=== PATIENT | male | born 1965 | race Caucasian/White ===

== ENCOUNTER 2016-12-21 03:43 | Emergency (ER) | payer MEDICARE, OTHER ==
[~2016-12-21] VITALS: Ht 177.8 cm; Wt 80.5 kg
[~2016-12-21 03:43] MED LIST: CHLO25CA9 PO; DIVA500T15 PO; FOLI-49 PO; GABA-528 PO; LORA-444 PO; PANT40TA3 PO; PANT40TA4 PO; TRAZ100T15 PO
[2016-12-21 03:55] VITALS: Ht 177.8 cm; Wt 80.5 kg
--- NOTE | 2016-12-21 04:57 | ERD ---
ER Documentation Chief Complaint Date/Time DATE: 12/21/16 TIME: 04:56 Chief Complaint etoh w/drawal symptomd-shaking, anxiety, can not sleep HPI This a 51-year-old male comes in with complaints of his symptoms feels is very shaky and anxious. He states he cannot sleep. Last drink was yesterday. No suicidal homicidal thoughts. No auditory or visual hallucinations. ROS All systems reviewed and are negative except as per history of present illness. Medications Home Meds Active Scripts Lorazepam* (Ativan*) 2 Mg Tablet, 2 MG PO Q8 Y for ANXIETY, #60 TAB Prov:KOMAL,NElmerALONZO 06/12/15 Pantoprazole* (Pantoprazole*) 40 Mg Tabec, 40 MG PO DAILY for 30 Days Prov:KOMAL,NElmerALONZO 06/12/15 Folic Acid* (Folic Acid*) 1 Mg Tab, 1 MG PO DAILY for 30 Days Prov:Ye SAUCEDAElmerSERVANDO 06/12/15 Chlordiazepoxide* (Chlordiazepoxide*) 25 Mg Cap, 25 MG PO BID for 10 Days Prov:KOMAL,NElmerYANETSERVANDO 06/12/15 Reported Medications Divalproex Sodium* (Divalproex ER*) 500 Mg Tab.er.24h, 2000 MG PO BID, TAB.SA 06/08/15 Gabapentin* (Gabapentin*) 800 Mg Tablet, 800 MG PO HS, TAB 06/19/14 Gabapentin* (Gabapentin*) 800 Mg Tablet, 1600 MG PO AM, TAB 06/19/14 Pantoprazole* (Protonix*) 40 Mg Tablet.dr, 40 MG PO DAILY, TAB 06/19/14 Trazodone Hcl* (Trazodone Hcl*) 100 Mg Tablet, 100 MG PO HS, TAB 06/19/14 Allergies Allergies: Coded Allergies: No Known Allergy (Unverified , 06/08/15) PMhx/Soc History of Surgery: No Anesthesia Reaction: No Hx Neurological Disorder: No Hx Respiratory Disorders: No Hx Cardiac Disorders: No Hx Psychiatric Problems: Yes Hx Miscellaneous Medical Probl: Yes (alcohol abuse,bipolar d/o, substance abuse ) Hx Alcohol Use: Yes Hx Substance Use: No Hx Tobacco Use: Yes Physical Exam Vitals Vital Signs Date Time Temp Pulse Resp B/P Pulse Ox O2 Delivery O2 Flow Rate FiO2 12/21/16 03:55 98.3 97 20 148/82 97 Physical Exam Const: [] Head: Atraumatic Eyes: Normal Conjunctiva ENT: Normal External Ears, Nose and Mouth. Neck: Full range of motion..~ No meningismus. Resp: Clear to auscultation bilaterally Cardio: Regular rate and rhythm, no murmurs Abd: Soft, non tender, non distended. Normal bowel sounds Skin: No petechiae or rashes Back: No midline or flank tenderness Ext: No cyanosis, or edema Neur: Awake and alert Psych: Normal Mood and Affect Procedures/MDM Medical decision-makin-year-old male with acute alcohol withdrawal. No evidence of delirium tremens. Patient responded well to Ativan. Discharged home with Librium. Follow with PCP and outpatient treatment center. Return for worsening symptoms. Departure Diagnosis: Primary Impression: Alcohol withdrawal syndrome Complication of substance-induced condition: uncomplicated Qualified Code: F10.230 - Alcohol withdrawal syndrome, uncomplicated Condition: Stable CAREY UGALDE December 21, 2016 04:57
[2016-12-21] MEDS ORDERED: CHLO25CA9 PO (04:58)
[2016-12-21] MEDS ORDERED: LORAZEPAM 1 MG TAB PO ONE (05:00)
[2016-12-21 06:12] VITALS: BP 122/89; PULSE 100; RESP 20; TEMP 98.3
== END 2016-12-21 06:21 | disposition home or self-care (01) ==
LOC: E/R 03:43
DX: F10.230 Alcohol dependence with withdrawal, uncomplicated (principal); R40.2142 Coma scale, eyes open, spontaneous, at arrival to emergency department; R40.2252 Coma scale, best verbal response, oriented, at arrival to emergency department; R40.2362 Coma scale, best motor response, obeys commands, at arrival to emergency department; Z87.891 Personal history of nicotine dependence
CPT/HCPCS: 99283

== ENCOUNTER 2018-03-21 21:37 | Emergency (ER) | END 2018-03-22 10:48 | disposition home or self-care (01) ==

== ENCOUNTER 2018-03-22 18:09 | Emergency (ER) | END 2018-03-23 15:05 ==